=== PATIENT | male | born 1985 | race African-American/Black ===

== ENCOUNTER 2023-05-19 18:18 | Emergency (ER) | payer SELFPAY ==
[2023-05-19 18:26] VITALS: BP 152/84; BP 160/90; PULSE 78; PULSE 94; RESP 16; TEMP 36.4; O2SAT 100; O2SAT 99; BMI 29.5
--- NOTE | 2023-05-19 18:34 | ED.GENADULT ---
HPI - General Adult General Chief complaint: Overdose Stated complaint: OD, narcan given by PD Time Seen by Provider: 05/19/23 18:28 Source: patient Mode of arrival: ambulatory Limitations: no limitations History of Present Illness HPI narrative: 37-year-old male with history of some substance abuse presents to ED for accidental overdose over half a bag of heroin. Patient states he is not suicidal or homicidal and was not intentional. Patient relpased after being clean for 5 months. Patient does not want detox. Patient denies any physical complaints. Related Data Allergies Allergy/AdvReac Type Severity Reaction Status Date / Time No Known Allergies Allergy Verified 05/19/23 18:33 Review of Systems Review of Systems: Accidental overdose Yes all other systems are reviewed and are negative FOR[facility]LY [facility] Social History Social History Advance Directives: No Advance Directives Information Provided: No Physical Exam ED Vital Signs: Vital Signs - 24 hr 05/19/23 18:26 05/19/23 19:26 Temperature 97.6 F 98.3 F Pulse Rate 78 80 Respiratory Rate 16 16 Blood Pressure 152/84 H 132/78 Pulse Oximetry 100 98 Oxygen Delivery Method Room Air Room Air BMI result Body Mass Index 29.5 Const General: cooperative, healthy appearing, comfortable, no acute distress, well developed, alert, awake and Physically active Orientation/consciousness: oriented to person, oriented to place, oriented to time and patient oriented x3 HENMT Head: Yes normal to inspection, Yes No palpable skull fracture present, Yes normocephalic, Yes atraumatic and No abrasion Eyes General: appearance normal, both eyes and all related structures Neck Neck: Yes normal visual inspection, Yes full ROM, Yes no lymphadenopathy, Yes no meningeal signs, Yes trachea midline, Yes supple, No anterior neck swelling and No tender Chest Chest palpation & inspection: normal inspection of the chest and normal palpation of entire chest wall Resp Effort & Inspection: normal respiratory effort and able to speak in complete sentences Auscultation: clear to auscultation bilaterally Cardio Jugular venous distension: no JVD Heart sounds: S1 normal heart sound present and S2 normal heart sound present GI Inspection: Yes normal to inspection Palpation (GI): Soft to palpation, not firm, nontender, no guarding and not rigid General: No CVA tenderness and Yes no CVA tenderness Back/Spine/Pelvis Back: no CVA tenderness, No CVA tenderness and No back tenderness Skin General skin exam: no rashes or lesions noted, elasticity normal and turgor normal Neuro General: oriented to person, oriented to place, oriented to time, patient oriented x3, gait normal, tone normal, moves all extremities, Normal light touch and pain sensation, no meningeal signs, no focal motor deficits, CN's II-XI intact bilaterally and normal sensation to monofilament Extrem General: Yes normal to inspection and Yes full ROM Psych Appearance: grossly normal, well kempt and not disheveled Medications Administered Discontinued Medications Generic Name Dose Route Start Last Admin Trade Name Uyen PRN Reason Stop Dose Admin Naloxone HCl 8 mg 05/19/23 19:32 05/19/23 19:49 Naloxone Hcl Nasal Take Home 4 Mg Vesper NOSTRILALT 05/19/23 19:33 8 mg ONCE ONE Administration Medical Decision Making Medical Decision Making [facility] Narrative: 37-year-old male presents to ED for accidental overdose rump after bagging heroin. Patient not suicidal homicidal. Patient denies any other complaints. Patient does not want detox. 7:26pm: patient oxygen saturation 100% after being observed in the ER for at least 1 hour. Patient does not want to speak to recovery analyst and does not want to wait for care team such evaluation. Patient is not suicidal homicidal. Patient discharged with naloxone take home. vital signs states Differential Diagnosis Differential Diagnoses: The differential diagnosis associated with the presentation includes ( accidental overdose, suicidal, homicidal, polysubstance abuse,) Admission/Observation Consideration of admission/observation: Escalation of care including admission/observation considered Independent Historian Clinical information obtained from an independent historian. History obtained from or confirmed by: EMS External Record Review External record reviewed: Other (Prior ED Visit) Prescription Management I considered prescription management with: Other (nalaxone) Discharge Plan Discharge Clinical Impression: Polysubstance abuse, Drug overdose Patient Disposition: Home, Self-Care Instructions: Polysubstance Abuse (ED), Adult Overdose (ED) Additional Instructions: please follow-up with your primary care provider. Return to the ED immediately for any concerning symptoms. Interventions: ED Discharge Assessment Last Done: 05/19/23 20:01 Discharge Date/Time: 05/19/23 20:01 Print Language: Swedish
--- NOTE | 2023-05-19 18:50 | PC.NURSE ---
patient is awake and alert, belongings in decon, changed into hospital attire. calm and cooperative, given crackers and alpa cheng. pulse ox on for monitoring
[2023-05-19 19:26] VITALS: BP 132/78; PULSE 80; RESP 16; TEMP 36.8; O2SAT 98
[2023-05-19] MEDS: Naloxone HCl Nasal TAKE HOME 4 MG SPRAY 8 MG NOSTRILALT (19:49)
== END 2023-05-19 20:01 | disposition home or self-care (01) ==
PROVIDERS: Emergency Provider Emergency Medicine
DX: F19.10 Other psychoactive substance abuse, uncomplicated (principal); T40.1X1A Poisoning by heroin, accidental (unintentional), initial encounter; Y92.9 Unspecified place or not applicable
CPT/HCPCS: 99283